=== PATIENT | male | born 2000 | race African-American/Black ===

== ENCOUNTER 2020-03-21 16:59 | Emergency (ER) | payer MEDICAID ==
[~2020-03-21] VITALS: Ht 167.6 cm; Wt 59.0 kg
[2020-03-21] MEDS ORDERED: IBUPROFEN 600MG TABLET PO ONE (18:30)
[2020-03-21] MEDS ORDERED: FLUORESCEIN SODIUM 1MG/STRIP RIGHTEYE ONE (18:45)
[2020-03-21 20:31] VITALS: BP 124/70
== END 2020-03-21 20:33 | disposition home or self-care (01) ==
LOC: ER 16:59
DX: S02.2XXA Fracture of nasal bones, initial encounter for closed fracture (principal); S05.01XA Injury of conjunctiva and corneal abrasion without foreign body, right eye, initial encounter; Z88.0 Allergy status to penicillin; Y04.0XXA Assault by unarmed brawl or fight, initial encounter; Y93.89 Activity, other specified; Y92.018 Other place in single-family (private) house as the place of occurrence of the external cause
CPT/HCPCS: 70486; 99284